=== PATIENT | male | born 1950 | race Caucasian/White ===

== ENCOUNTER 2016-12-04 10:52 | Emergency (ER) | payer BC ==
[~2016-12-04] VITALS: Ht 154.9 cm; Wt 83.5 kg
[2016-12-04 10:55] VITALS: Ht 154.9 cm; Wt 83.5 kg
[2016-12-04] MEDS ORDERED: SOD CHLORIDE 0.9% 1,000 ML IV STA (11:03)
[2016-12-04] MEDS ORDERED: morphine 4 MG/ML VIAL IV STA (11:03)
[2016-12-04] MEDS ORDERED: ONDANSETRON 4 MG INJ IV STA (11:03)
[2016-12-04] MEDS ORDERED: hydrALAzine 20 MG INJ IV ONE (11:30)
[2016-12-04] MEDS ORDERED: LABETALOL HCL 20MG INJ IV ONE (11:30)
[2016-12-04] MEDS ORDERED: LISI40TA9 PO (11:34)
[2016-12-04] MEDS ORDERED: HYD25 PO (11:35)
[2016-12-04] MEDS ORDERED: SIMV20TA PO (11:35)
[2016-12-04 11:51] LABS: BASOPHILS % 0.3 % (0.0-2.0); EOSINOPHILS % 0.3 % (0.0-7.0); HEMATOCRIT 40.2 % (42.0-52.0); HEMOGLOBIN 13.9 g/dl (14.0-18.0); LYMPHOCYTES # 0.9 10^3/ul (0.8-2.9); LYMPHOCYTES % 13.7 % (15.0-51.0); MEAN CORPUSCULAR HEMOGLOBIN 31.1 pg (29.0-33.0); MEAN CORPUSCULAR HGB CONC 34.6 g/dl (32.0-37.0); MEAN CORPUSCULAR VOLUME 89.9 fl (82.0-101.0); MEAN PLATELET VOLUME 11.5 fl (7.4-10.4); MONOCYTE # 0.4 10^3/ul (0.3-0.9); MONOCYTES % 5.4 % (0.0-11.0); NEUTROPHIL # 5.5 10^3/ul (1.6-7.5); PLATELET COUNT 169 10^3/UL (140-415); RED BLOOD COUNT 4.47 10^6/ul (4.70-6.10); RED CELL DISTRIBUTION WIDTH 12.9 % (11.5-14.5); WHITE BLOOD COUNT 6.9 10^3/ul (4.8-10.8)
[2016-12-04 12:03] LABS: ADD UMIC YES; UR ASCORBIC ACID 40 mg/dL (NEGATIVE); UR BACTERIA FEW /HPF (NONE SEEN); UR BILIRUBIN (Dip) NEGATIVE (NEGATIVE); UR BLOOD (Dip) 3+ mg/dL (NEGATIVE); UR CLARITY SLIGHTLY CLOUDY (CLEAR); UR COLOR YELLOW (YELLOW); UR GLUCOSE (Dip) NEGATIVE (NEGATIVE); UR KETONES (Dip) NEGATIVE (NEGATIVE); UR LEUKOCYTE ESTERASE (Dip) NEGATIVE Leu/ul (NEGATIVE); UR MUCUS FEW /HPF (NONE SEEN); UR NITRITE (Dip) NEGATIVE (NEGATIVE); UR RBC 160 /HPF (0-5); UR SPECIFIC GRAVITY (Dip) 1.026 (1.003-1.030); UR TOTAL PROTEIN (Dip) 1+ mg/dl (NEGATIVE); UR UROBILINOGEN (Dip) NEGATIVE (NEGATIVE)
--- NOTE | 2016-12-04 12:17 | RADRPT ---
PROCEDURE: CT Abdomen and Pelvis without contrast. CLINICAL INDICATION: Right abdominal pain. TECHNIQUE: CT scan of the abdomen and pelvis with and without contrast was performed on a multidet gilberto high-resolution CT scanner. Coronal and sagittal reformatted images were obtained from the a xial source images. The total exam CTDI equals 17.31 mGy and the total exam DLP equals 1004.13 mGy-c m. One or more of the following dose reduction techniques were utilized: Automated exposure control , adjustment of the mA and/or kV according to patient size, use of iterative reconstruction techniqu e. COMPARISON: None. FINDINGS: CT abdomen: The lung bases are clear. The visualized heart size is normal, without pericardial thickening or ef fusion. The liver is normal in size and density without focal mass or intrahepatic biliary dilatati on. The efraín hepatis region is clear. The spleen is normal in size and homogeneous in density. Th e stomach is partially collapsed, but is grossly unremarkable. The pancreas as visualized is normal . The gallbladder is unremarkable. No evidence of intra or extra hepatic biliary ductal dilatation. Th e adrenal glands are symmetric and normal. Bilateral nonobstructing nephrolithiasis with punctate foci in the right upper and lower pole calyce s and left upper, mid and lower pole calyces. The largest calcification on the left measures 7 mm i n size in the left lower pole jacinda. Moderate right hydronephrosis and hydroureter with obstructing 3 mm ureteral calculus at the right UVJ. No left hydronephrosis. The renal parenchyma is unremark able bilaterally. The aorta is of normal caliber. Aortic vascular calcifications are present. There is no ascites, r etroperitoneal, or mesenteric lymphadenopathy. scattered colonic diverticula without diverticulitis . The bowel and mesentery, as visualized, are equally unremarkable. CT pelvis: Retrocecal gas-filled normal caliber appendix. The small bowel loops situated within the pelvis are unremarkable. Thick-walled bladder with enlarge d prostate suggestive of chronic bladder outlet obstruction or cystitis. No acute inflammatory proc ess. No bladder calculi left distal ureteral calculus. Prostate gland is enlarged measuring 5 cm i n greatest transaxial dimension. Bilateral fat containing inguinal hernia. The pelvic sidewalls an d inguinal regions are clear. No lymphadenopathy, free fluid, or mass. Bones: The surrounding osseous structures are remarkable for degenerative spondylosis of the spine. No ost eolytic or osteoblastic lesion is detected. IMPRESSION: 1. 3 mm obstructing right distal ureteral calculus at the level of the UVJ moderate hydronephrosis and hydroureter. 2. Bilateral nonobstructing nephrolithiasis without abnormality. Evaluation is limited due to lack of intravenous contrast. 3. Colonic diverticulosis without diverticulitis. 4. Thick-walled bladder with enlarged prostate suggestive of chronic bladder outlet obstruction or cystitis. No acute inflammatory process. 5. No lymphadenopathy or ascites. RPTAT:AAJJ Abdullahi Deshpande Physician Date Time Electronically viewed and signed by Physician Gerard on 12/04/2016 12:17 MÓNICA/
[2016-12-04 12:24] LABS: ALANINE AMINOTRANSFERASE 26 IU/L (13-69); ALBUMIN 4.2 g/dl (3.3-4.9); ALBUMIN/GLOBULIN RATIO 1.55; ALKALINE PHOSPHATASE 72 IU/L (42-121); ANION GAP 19 (8-16); ASPARTATE AMINO TRANSFERASE 25 IU/L (15-46); BILIRUBIN,INDIRECT 0.5 mg/dl (0-1.1); BILIRUBIN,TOTAL 0.5 mg/dl (0.2-1.3); BLOOD UREA NITROGEN 20 mg/dl (7-20); CALCIUM 9.3 mg/dl (8.4-10.2); CARBON DIOXIDE 23 mmol/L (21-31); CHLORIDE 108 mmol/L (97-110); CREATININE 0.88 mg/dl (0.61-1.24); GLUCOSE 130 mg/dl (70-220); POTASSIUM 3.9 mmol/L (3.5-5.1); SODIUM 146 mmol/L (135-144); TOTAL PROTEIN 6.9 g/dl (6.1-8.1)
[2016-12-04] MEDS ORDERED: KETOROLAC 30 MG INJ IV STA (12:32)
[2016-12-04 12:42] LABS: TROPONIN-I < 0.012 ng/ml (0.00-0.12)
[2016-12-04] MEDS ORDERED: ONDA4TAB11 PO (13:09)
[2016-12-04] MEDS ORDERED: NAPR-688 PO (13:09)
[2016-12-04] MEDS ORDERED: HYDR-906 PO (13:09)
[2016-12-04] MEDS ORDERED: TAMS-14 PO (13:09)
[2016-12-04 13:34] VITALS: BP 168/87; PULSE 60; RESP 16; TEMP 98.5
--- NOTE | 2016-12-04 13:54 | ERD ---
ER Documentation Chief Complaint Date/Time DATE: 12/04/16 TIME: 13:47 Chief Complaint abd pain with nausea x this am HPI This 66-year-old male comes emergency room with his son for right flank pain as well as some anterior lower abdominal pain that began this morning. He also has some nausea without vomiting. Denies any fever and chills. Has never had pain like this before. He has no history of kidney stones or abdominal surgery. No dysuria. ROS All systems reviewed and are negative except as per history of present illness. Medications Home Meds Active Scripts Tamsulosin Hcl* (Flomax*) 0.4 Mg Cap.er.24h, 0.4 MG PO BID, #30 CAP Prov:CHRISDIMAS DO 12/04/16 Ondansetron (Zofran Odt) 4 Mg Tab.rapdis, 4 MG PO Q6 for NAUSEA, #10 Prov:CHRISDIMAS DO 12/04/16 Hydrocodone/Acetaminophen ([place] 5-325 Tablet) 1 Each Tablet, 1 EACH PO Q6 for SEVERE PAIN LEVEL 7-10, #20 TAB Prov:CHRISDIMAS DO 12/04/16 Naproxen* (Naproxen*) 500 Mg Tablet, 500 MG PO BID Y for PAIN, #30 TAB Prov:CHRISDIMAS DO 12/04/16 Reported Medications Simvastatin* (Zocor*) 20 Mg Tablet, 20 MG PO QHS, #30 TAB 12/04/16 Hydrochlorothiazide* (Hydrochlorothiazide*) 25 Mg Tab, 25 MG PO DAILY, #30 TAB 12/04/16 Lisinopril* (Lisinopril*) 40 Mg Tablet, 40 MG PO DAILY, #30 TAB 12/04/16 Allergies Allergies: Coded Allergies: No Known Allergy (Unverified , 12/04/16) PMhx/Soc History of Surgery: No Anesthesia Reaction: No Hx Neurological Disorder: No Hx Respiratory Disorders: No Hx Psychiatric Problems: No Hx Miscellaneous Medical Probl: Yes (HTN, elevated Cholesterol, Pre-DM) Hx Alcohol Use: No Hx Substance Use: No Hx Tobacco Use: No Smoking Status: Never smoker Physical Exam Vitals Vital Signs Date Time Temp Pulse Resp B/P Pulse Ox O2 Delivery O2 Flow Rate FiO2 12/04/16 13:34 98.5 60 16 168/87 97 Room Air 12/04/16 12:55 98.5 53 16 155/76 97 Room Air 12/04/16 10:55 98.6 53 18 243/105 97 Physical Exam Const: [] Moderate distress Head: Atraumatic Eyes: Normal Conjunctiva ENT: Normal External Ears, Nose and Mouth. Neck: Full range of motion..~ No meningismus. Resp: Clear to auscultation bilaterally Cardio: Regular bradycardia, no murmurs Abd: Soft, mild right mid abdominal tenderness and right lower quadrant tenderness without guarding or rebound, non distended. Normal bowel sounds Skin: No petechiae or rashes Back: No midline or flank tenderness, positive CVA on the right Ext: No cyanosis, or edema Neur: Awake and alert and oriented 3, no focal deficits Psych: Normal Mood and Affect Result Diagram: 12/04/16 1140 12/04/16 1140 Results 24 hrs Laboratory Tests Test 12/04/16 11:33 12/04/16 11:40 Urine Color YELLOW Urine Clarity SLIGHTLY CLOUDY Urine pH 6.0 Urine Specific [place] 1.026 Urine Ketones NEGATIVEmg/dL Urine Nitrite NEGATIVEmg/dL Urine Bilirubin NEGATIVEmg/dL Urine Urobilinogen NEGATIVEmg/dL Urine Leukocyte Esterase NEGATIVELeu/ul Urine Microscopic RBC 160/HPF Urine Microscopic WBC 3/HPF Urine Bacteria FEW/HPF Urine Mucus FEW/HPF Urine Hemoglobin 3+mg/dL Urine Glucose NEGATIVEmg/dL Urine Total Protein 1+mg/dl White Blood Count 6.910^3/ul Red Blood Count 4.4710^6/ul Hemoglobin 13.9g/dl Hematocrit 40.2% Mean Corpuscular Volume 89.9fl Mean Corpuscular Hemoglobin 31.1pg Mean Corpuscular Hemoglobin Concent 34.6g/dl Red Cell Distribution Width 12.9% Platelet Count 92779^3/UL Mean Platelet Volume 11.5fl Neutrophils % 80.0% Lymphocytes % 13.7% Monocytes % 5.4% Eosinophils % 0.3% Basophils % 0.3% Nucleated Red Blood Cells % 0.0/100WBC Neutrophils # 5.510^3/ul Lymphocytes # 0.910^3/ul Monocytes # 0.410^3/ul Eosinophils # 0.010^3/ul Basophils # 0.010^3/ul Nucleated Red Blood Cells # 0.010^3/ul Sodium Level 146mmol/L Potassium Level 3.9mmol/L Chloride Level 108mmol/L Carbon Dioxide Level 23mmol/L Anion Gap 19 Blood Urea Nitrogen 20mg/dl Creatinine 0.88mg/dl Glucose Level 130mg/dl Calcium Level 9.3mg/dl Total Bilirubin 0.5mg/dl Direct Bilirubin 0.00mg/dl Indirect Bilirubin 0.5mg/dl Aspartate Amino Transf (AST/SGOT) 25IU/L Alanine Aminotransferase (ALT/SGPT) 26IU/L Alkaline Phosphatase 72IU/L Troponin I < 0.012ng/ml Total Protein 6.9g/dl Albumin 4.2g/dl Globulin 2.70g/dl Albumin/Globulin Ratio 1.55 Lipase 98U/L Current Medications Medications (Trade) Dose Ordered Sig/Elle Route PRN Reason Start Time Stop Time Status Last Admin Dose Admin Sodium Chloride (NS) 1,000 ml @ 1,000 mls/hr Q1H STAT IV 12/04/16 11:03 12/04/16 12:02 DC 12/04/16 11:34 Morphine Sulfate (morphine) 4 mg ONCE STAT IV 12/04/16 11:03 12/04/16 11:06 DC 12/04/16 11:34 Ondansetron HCl (Zofran Inj) 4 mg ONCE STAT IV 12/04/16 11:03 12/04/16 11:06 DC 12/04/16 11:34 Labetalol HCl (Labetalol) 20 mg ONCE ONCE IV 12/04/16 11:30 12/04/16 11:32 DC Hydralazine HCl (Apresoline) 10 mg ONCE ONCE IV 12/04/16 11:30 12/04/16 11:31 DC 12/04/16 11:38 Ketorolac Tromethamine (Toradol) 30 mg ONCE STAT IV 12/04/16 12:32 12/04/16 12:35 DC 12/04/16 12:44 Procedures/MDM Accelerated hypertension is out of control as well as ureteral colic on the right side. Patient stated he had not taken his blood pressure medication this morning. He is on lisinopril and another pill. If after pain was treated the patient's blood pressure remained dangerously high. He was given 10 mg of hydralazine IV rather than labetalol because of his low heart rate. This lowered his blood pressure to a safe level. He had also been given morphine, Zofran, liter of IV fluid. After CAT scan return is also given Toradol for anti -inflammatory properties to help the stone pass faster. He was feeling very comfortable in the emergency room. During a copy of his CAT scan discharge with primary care follow-up in 2-3 days. Blood pressure did remain stable. Intends to take his blood pressure medicine is soon as he gets home as I have warned him about rebound hypertension. Is going to see his doctor first thing this coming week. EKG interpretation: Sinus bradycardia rate of 45, right bundle branch block, no ST or T-wave changes concerning for acute ischemia. Normal axis. rest room matron interpretation: Sinus bradycardia without other arrhythmia CT abdomen pelvis interpretation: 3 mm right proximal ureteral stone with mild hydronephrosis, enlarged prostate, no colonic obstruction, no free air, no abnormal fat stranding, no fractures Critical care time 37 minutes: This includes time spent managing severe hypertension using vasoactive medication, careful pain control, multiple visits patient's bedside to reassess status, review of chart including EKG, careful fluid administration and lengthy discussions with patient and son. This does not include any billable procedures. Departure Diagnosis: Primary Impression: Ureteral calculus, right Additional Impressions: Renal colic on right side Accelerated hypertension Condition: Stable Patient Instructions: Kidney Stone W/ Colic Additional Instructions: Llame al doctor LAM y lorena jimmy ARIEL PARA DENTRO DE 2-3 PAREDES.Dgale a la secretaria que nosotros le instruimos hacer esta ariel.Avise o llame si edwards condicin se empeora antes de la ariel. Regresa aqui si peor o no mejor. DIMAS PEREZ DO Dec 04, 2016 13:54
== END 2016-12-04 13:40 | disposition home or self-care (01) ==
LOC: E/R 10:52
DX: N20.1 Calculus of ureter (principal); N23 Unspecified renal colic; I10 Essential (primary) hypertension
CPT/HCPCS: 36415; 74176; 80053; 81001; 83690; 84484; 85025; 93005; 96361; 96374; 96375; 99285; J0360; J1885; J2270; J2405; J7030